=== PATIENT | female | born 1955 | race Caucasian/White ===

== ENCOUNTER 2017-08-22 13:16 | Emergency (ER) | payer OTHER ==
[2017-08-22] MEDS ORDERED: methylPREDNISolone ACETATE 80* 80 MG/ML 1 ML VIAL IM ONE (13:40)
--- NOTE | 2017-08-22 13:44 | UC ---
Back Pain HPI - HPI Summary HPI Summary: 62 YEAR OLD FEMALE PRESENTS WITH LEFT BUTTOCK PAIN WITH RADIATION DOWN HER LEG. - History of Current Complaint Chief Complaint: UCLowerExtremity Stated Complaint: BACK/LEFT LEG COMPLAINT Time Seen by Provider: 08/22/17 13:27 Hx Obtained From: Patient Onset/Duration: Sudden Onset Severity Initially: Moderate Severity Currently: Moderate Pain Scale Used: 0-10 Numeric - 5 - Allergies/Home Medications Allergies/Adverse Reactions: Allergies Allergy/AdvReac Type Severity Reaction Status Date / Time Codeine Allergy Severe Vomiting Verified 08/22/17 13:26 Home Medications: Home Medications Omeprazole CAP* [Prilosec CAP* 20 MG] 1 cap DAILY 08/22/17 [History Confirmed ] PMH/Surg Hx/FS Hx/Imm Hx - Surgical History Surgical History: Yes Surgery Procedure, Year, and Place: 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 Partial hysterectomy - Social History Alcohol Use: None Substance Use Type: None Smoking Status (MU): Current Every Day Smoker Type: Cigarettes Amount Used/How Often: 1 PPD - Immunization History Most Recent Influenza Vaccination: none 2016 Review of Systems Constitutional: Negative Skin: Negative Eyes: Negative ENT: Negative Respiratory: Negative Cardiovascular: Negative Gastrointestinal: Negative Genitourinary: Negative Motor: Negative Neurovascular: Negative Musculoskeletal: Myalgia, Other: - LEFT BUTTOCK/LEG PAIN Neurological: Negative Psychological: Negative All Other Systems Reviewed And Are Negative: Yes Physical Exam Triage Information Reviewed: Yes Appearance: Pain Distress Vital Signs: Initial Vital Signs Temp 37.0 C 08/22/17 13:27 Pulse 77 08/22/17 13:27 Resp 16 08/22/17 13:27 BP 129/66 08/22/17 13:27 Pulse Ox 100 08/22/17 13:27 Vital Signs Reviewed: Yes Eye Exam: Normal ENT Exam: Normal Dental Exam: Normal Neck exam: Normal Neck: Positive: 1 Respiratory Exam: Normal Cardiovascular Exam: Normal Abdominal Exam: Normal Musculoskeletal: Positive: Other: - LEFT BUTTOCK/LEG PAIN Neurological Exam: Normal Psychological Exam: Normal Skin Exam: Normal Back Pain Course/Dx - Differential Dx/Diagnosis Provider Diagnoses: LEFT BUTTOCK/LEG PAIN Discharge - Discharge Plan Condition: Stable Disposition: HOME Prescriptions: Methocarbamol TAB* [Robaxin 500 MG TAB*] 500 mg PO TID PRN #30 tab PRN Reason: Spasms Methylprednisolone [Medrol Dosepak 4 MG*] 4 mg PO .SEE ELLIOTT INSTRUCTION #21 tab Patient Education Materials: Leg Pain (ED), Piriformis Syndrome (ED) Referrals: [facility] – [place], [place] Physical therapy,PT [Medical Doctor] -
[2017-08-22 13:54] VITALS: BP 129/66
== END 2017-08-22 14:25 | disposition home or self-care (01) ==
LOC: UCCORT 13:16
DX: M79.1 Myalgia (principal); M79.605 Pain in left leg; Z90.711 Acquired absence of uterus with remaining cervical stump; Z88.5 Allergy status to narcotic agent; F17.210 Nicotine dependence, cigarettes, uncomplicated
CPT/HCPCS: 96372; 99212; G0463; J1040